=== PATIENT | female | born 1950 | race Caucasian/White ===

== ENCOUNTER → 2023-05-14 09:41 | Outpatient (REF) | payer MEDICARE, OTHER, SELFPAY | LOC: RCS 09:41 | PROVIDERS: ATTENDING PHYSICIAN Internal Medicine Cardiovascular Disease; FAMILY PHYSICIAN Internal Medicine | DX: R00.2 Palpitations (principal); Z85.3 Personal history of malignant neoplasm of breast; R42 Dizziness and giddiness; R53.83 Other fatigue; I49.1 Atrial premature depolarization; Z92.3 Personal history of irradiation | CPT/HCPCS: 93017; 93350 ==

== ENCOUNTER → 2024-09-27 09:43 | Outpatient (REF) | payer MEDICARE, OTHER, SELFPAY | LOC: DHSLP 09:43 | PROVIDERS: ATTENDING PHYSICIAN Physician Assistant; FAMILY PHYSICIAN Internal Medicine | DX: G47.30 Sleep apnea, unspecified (principal); R06.83 Snoring | CPT/HCPCS: 95800 ==

== ENCOUNTER → 2024-10-12 12:57 | Outpatient (REF) | payer MEDICARE, OTHER, SELFPAY | LOC: RCS 12:57 | PROVIDERS: ATTENDING PHYSICIAN Physician Assistant; FAMILY PHYSICIAN Internal Medicine | DX: R00.2 Palpitations (principal); I48.0 Paroxysmal atrial fibrillation | CPT/HCPCS: 93306 ==

== ENCOUNTER 2025-01-17 07:40 | Day surgery (SDC) | payer MEDICARE, OTHER, SELFPAY ==
[2024-12-20 09:01] VITALS: BMI 28.1
[2025-01-17] VITALS (9 sets, daily range): BP systolic 114–148; BP diastolic 72–83
[2025-01-17] MEDS: EMEND 40 MG PO (08:32)
--- NOTE | 2025-01-17 10:41 | ITS.CL.ABL ---
Patch Finisher - Ablation
Ablation
Procedure Report:
ELECTROPHYSIOLOGIC STUDY AND POSSIBLE ABLATION
DATE: January 17, 2025
Primary Care Provider: Dr Alanna Garces
Primary Electric Sealing Machine Operator: Dr Cecelia Combs
INDICATION:
Symptomatic Atrial Fibrillation.
Paroxysmal
HAS-BLED: 1
Age
CHADSVASc: 2
Age
F Gender
PRESENTING RHYTHM: SR
HISTORY: See H and P.
Symptomatic AF, poorly controlled with attempted medical therapy.
Recently diagnosed symptomatic paroxysmal atrial fibrillation with [id number] score of 2. She was initially prescribed metoprolol as well as oral anticoagulation but was reluctant to start both that she is trying to avoid medical therapy.
Ultimately she was accepting of oral anticoagulation as and accepting of metoprolol to tartrate on a as needed basis.
She presents now for EP study and ablation targeting atrial fibrillation.
Of note, she has a history of breast cancer and has received both external beam radiation as well as chemotherapy.
ANTICOAGULATION: Xarelto 20 mg daily
'TIME-OUT': called and confirmed.
SEDATION/ANESTHESIA: provided via the anesthesia department using general anesthesia.
PROCEDURE:
Ultrasound Guidance with real-time visualization of needle insertion and vessel patency performed by me for femoral venous Vascular Access.
Under real-time US guidance, the needle was advanced with negative pressure into the vein. The needle was seen entering the vessel lumen with a good return of dark red flow, the syringe was removed, non-pulsatile, dark red blood low was noted and
the wire was passed without difficulty, then the needle was removed. US confirmed the wire was in the vein, not going into an artery,
Images were taken and saved for the patient's permanent record. Imaging findings typical femoral venous anatomy. Direct visualization of needle puncture into the femoral vein was observed and recorded.
A decapolar CS catheter was placed within the CS for mapping and pacing.
The intracardiac ultrasound catheter was positioned in the RA for continuous intracardiac ultrasound imaging.
Heparin bolus and infusion to target ACT at 300 -350 seconds was administered. Transseptal puncture was performed. This entailed advancing a sheath with dilator into the superior vena cava and withdrawing both (monitoring intracardiac ultrasound,
fluoroscopy and tip pressure) with the tip oriented toward the atrial septum. The fossa ovalis was engaged (indicated by sudden displacement of the sheath tip as well as tenting of the fossa seen on intracardiac ultrasound).
Transseptal puncture was performed. Left atrial catheter position was confirmed by echocardiographic imaging, pressure monitoring (LA mean pressure 3 mm Hg) and fluoroscopy. The sheath was advanced over the dilator and positioned in the left
atrium.
The vBranda multipolar mapping/ablation Sphere-9 catheter was positioned through the transseptal sheath for high density mapping.
Geometry and voltage mapping was performed using the [employer] mapping system for three-dimensional electroanatomical mapping.
Catheter positioning was guided and confirmed using both I.C.E. and fluoroscopy.
High density electroanatomical three-dimensional mapping demonstrated four PVs: LSPV, LIPV, RSPV, RIPV.
Ablation strategy included PVI as well as mapping for extra PV contributors to atrial fibrillation which would also be targeted if present.
After accomplishing pulmonary venous isolation, mapping identified additional areas likely to be extra PV contributors to atrial fibrillation. These areas demonstrated patchy low voltage as well as complex fractionated electrograms. These areas can
be sites for the formation of rotors which can drive and maintain atrial fibrillation. These areas are known to be significant contributors to initiation and perpetuation of atrial fibrillation.
Additional energy applications/additional ablation sets targeted extra PV contributors to atrial fibrillation.
Targets for additional PFA ablation included:
LA posterior wall targeted with pulsed electric field energy isolating the posterior wall of the left atrium
LA inferior floor
These areas were ablated using pulsed electric field energy eliminating the extra PV contributors to atrial fibrillation.
Post ablation mapping finds entrance and exit block at each of the pulmonary veins, the LA posterior wall and at the additional lines at the Inferior/floor of the LA rendering the sites no longer able to contribute to atrial fibrillation.
Programmed electrostimulation with burst atrial pacing failed to induce any arrhythmias. With the delivery of atrial decremental extrastimuli atrial fibrillation was induced at 600/260 ms. This spontaneously converted back to sinus rhythm.
Additional mapping of the left atrium found continued electrical block at the pulmonary veins and posterior wall. At this point the procedure was terminated.
I.C.E. :
Pre-Ablation Post-Ablation
LVEF: 55 % 55 %
WMA: none none
Pericardial effusion: none none
LA Pressure 3 13
COMPLICATIONS:
None
SUMMARY:
- Mapping and ablation to isolate the PVs resulting in electrical isolation of the pulmonary veins
- Additional AF ablation sets X 2 after PVI (LA posterior wall, Inf/floor of the LA posterior wall) resulting in elimination of the targeted extra PV contributors to atrial fibrillation (Post wall, Inf LA floor)
- 3-D Electroanatomical Mapping
- Intracardiac Ultrasound
- Ultrasound guidance for vascular access
Post ablation, I discussed today's findings and results with the patient's (Riky) and daughter.
RECOMMENDATIONS:
- Observe in monitored bed.
- Maintain oral anticoagulation.
- Will arrange office visit with me in 3�4 months.
Copy to:
Primary Care Provider: Dr Alanna Garces
Primary Electric Sealing Machine Operator: Dr Cecelia Combs
[2025-01-17 12:31] LABS: ACT-LR - POC > 397 Seconds (116-155)
[2025-01-17 12:31] LABS: ACT-LR - POC > 397 Seconds (116-155)
[2025-01-17] MEDS: ANESTHETIC LOZENGE 1 LOZENGE PO (13:22)
[2025-01-17] MEDS: TYLENOL 650 MG PO (14:42)
--- NOTE | 2025-01-17 15:19 | W.PN.UPDATE ---
Update Note
Progress Note Update
Pt seen post PFA. Right groin site without ht/bleeding, non tender. Post EKG NSR 75, no acute changes. Resume xarelto tonight at usual time. Followup at [facility] as scheduled. Home today if groin site/tele remain stable.
== END 2025-01-17 17:15 | disposition home or self-care (01) ==
LOC: CATH 07:40
PROVIDERS: ATTENDING PHYSICIAN Internal Medicine Cardiovascular Disease; FAMILY PHYSICIAN Internal Medicine; OTHER PHYSICIAN Internal Medicine Cardiovascular Disease
DX: I48.0 Paroxysmal atrial fibrillation (principal); Z85.3 Personal history of malignant neoplasm of breast; Z79.01 Long term (current) use of anticoagulants
CPT/HCPCS: 86900; 86901; 93005; 93656; 93657; C1730; C1732; C1733; C1766; C1769; C1892; C1894